=== PATIENT | male | born 1955 | race Caucasian/White ===

== ENCOUNTER 2021-06-02 17:36 | Inpatient (IN) | payer BC, MEDICARE ==
[~2021-06-02] VITALS: Ht 182.9 cm; Wt 99.0 kg
[2021-06-02 22:26] LABS: BASO # 0.1 (0.0-0.2); BASO % 0.5 % (0.0-2.0); EOS # 0.1 (0.0-0.7); GRAN # 6.6 (1.4-6.5); GRAN % 68.7 % (42.2-75.2); HEMATOCRIT 41.8 % (42.0-52.0); LYMPH # 1.9 (1.2-3.4); LYMPH % 20.2 % (20.0-51.0); MEAN CELL VOLUME 89 fl (80.0-100.0); MEAN CORPUSCULAR HEMOGLOBIN 30 pg (27.0-31.0); MEAN CORPUSCULAR HGB CONC 34 g/dl (33.0-37.0); MEAN PLATELET VOLUME 10.1 fl (7.4-10.4); MONO # 0.9 (0.1-0.6); MONO % 9.2 % (1.7-9.3); PLATELET COUNT 210 K/mm3 (130-400); RED BLOOD COUNT 4.72 M/mm3 (4.20-5.60); REDCELL DISTRIBUTION WIDTH-CV 13.1 % (11.5-14.5)
[2021-06-02 22:40] LABS: ALBUMIN 4.4 gm/dL (3.5-5.0); BILIRUBIN,TOTAL 0.6 mg/dL (0.0-1.0); C-REACTIVE PROTEIN 4.1 mg/dL (0.0-0.9); CALCIUM 9.7 mg/dL (8.4-10.2); CREATININE, serum 1.1 (0.66-1.25); POTASSIUM 4.2 mmol/L (3.4-5.0); TOTAL PROTEIN 7.4 gm/dL (6.4-8.2)
[2021-06-03] VITALS (7 sets, daily range): BP systolic 131–152; BP diastolic 65–77; PULSE 74–86; TEMP 98–99.3
[2021-06-03] MEDS ORDERED: TRESIBA FL100 UNIT/1 SQ (00:43)
[2021-06-03] MEDS ORDERED: TRULICITY3 MG/0.5 M SQ (00:44)
[2021-06-03] MEDS ORDERED: CEPHALEXIN500 M1 PO (00:44)
[2021-06-03] MEDS ORDERED: AMARYL4 MG PO (00:45)
[2021-06-03] MEDS ORDERED: GLUCOPHAGE1000 MG PO (00:46)
[2021-06-03] MEDS ORDERED: VOLTAREN 50MG T50 MG PO (00:48)
--- NOTE | 2021-06-03 02:50 | NUR ---
PT ARRIVED TO ROOM 347 VIA W/C. IS ALERT AND ORIENTED X4. HAS IV VANCO INFUSING TO LEFT HAND SITE, NO REDNESS OR SWELLING NOTED. RATES PAIN TO RT HAND 5/10. HAS REDDENED RT HAND, 4TH AND 5TH DIGITS WITH MINIMAL SWELLING, REPORTS PAIN UP TO WRIST AREA. OFFERED PILLOW TO ELEVATE, DECLINED. REPORTS B/P TAKEN ON THAT ARM DOESN'T BOTHER HIS HAND.
--- NOTE | 2021-06-03 03:11 | NUR ---
MEDICATED WITH DILAUDID 0.25MG IVP AT THIS TIME. ADMISSION QUESTIONS COMPLETED.
--- NOTE | 2021-06-03 05:19 | NUR ---
MEDICATED WITH DILAUDID 0.25MG IVP FOR PAIN 6/10 TO RT HAND.
--- NOTE | 2021-06-03 07:12 | NUR ---
Dr. Haney in to see patient.
[2021-06-03 07:16] LABS: BASO % 0.4 % (0.0-2.0); EOS % 0.5 % (0-4.0); GRAN # 5.7 (1.4-6.5); GRAN % 71.6 % (42.2-75.2); HEMATOCRIT 38.6 % (42.0-52.0); HEMOGLOBIN 12.6 g/dl (13.5-18.0); LYMPH # 1.3 (1.2-3.4); LYMPH % 16.8 % (20.0-51.0); MEAN CELL VOLUME 91 fl (80.0-100.0); MEAN CORPUSCULAR HEMOGLOBIN 30 pg (27.0-31.0); MEAN CORPUSCULAR HGB CONC 33 g/dl (33.0-37.0); MONO # 0.8 (0.1-0.6); MONO % 10.3 % (1.7-9.3); PLATELET COUNT 171 K/mm3 (130-400); RED BLOOD COUNT 4.25 M/mm3 (4.20-5.60); REDCELL DISTRIBUTION WIDTH-CV 13.2 % (11.5-14.5)
[2021-06-03 07:25] LABS: CALCIUM 8.6 mg/dL (8.4-10.2); CREATININE, serum 1.23 (0.66-1.25); POTASSIUM 4.2 mmol/L (3.4-5.0)
--- NOTE | 2021-06-03 08:00 | NUR ---
Patient in bed resting. Alert and oriented x 3. Spouse at bedside. States pain to right hand. medications given per orders. Right hand is warm to touch, edema noted. Patient unable to close hand d/t swelling. States it has been getting progressively worse since previous days. Denies further needs at this time.
--- NOTE | 2021-06-03 10:14 | NUR ---
Patient up ambulating in halls independently, steady gait.
--- NOTE | 2021-06-03 11:43 | NUR ---
Patient states pain to right hand 6/10, medications given per orders.
--- NOTE | 2021-06-03 11:58 | NUR ---
Notified Hospitalist, patient spouse concerned about MRI being without contrast as her son (who is a radiologist) is recomending MRI with contrast.
--- NOTE | 2021-06-03 13:23 | NUR ---
Initial visit; Patient thanked [employer] for looking in on him and offering God's blessings.
--- NOTE | 2021-06-03 14:01 | NUR ---
Patient originally seen in the hallway ambulating with his , Ashtyn #[phone]. She was able to confirm insurance and provided the patient's MCR card. Interview then took place in patient's room after he finished his walk. Patient is from home; he lives with his in [place]. Patient states he does not have a DPOA or living will and has no interest in completing one here today. Barry have a son, Arturo Omlos, who is a radiologist at [employer], that they would like involved in care, #[phone]. The patient denies the use of assistive devices or home medical equipment and doesn't forsee the need for any at this time. PCP is Dr. Wilkerson in [facility] and preferred pharmacy is [facility]. DISCHARGE PLAN: HOME WITH SUPPORT
--- NOTE | 2021-06-03 17:13 | NUR ---
Patient back from MRI
--- NOTE | 2021-06-03 18:15 | NUR ---
Patient doing well throughout the day. Spouse at bedside. Patient showered independently this afternoon. Pain medication given throughout the day for hand pain. Antibiotics and fluids infusing per orders. Denies further needs at this time. Will report off to topstitcher lockstitch.
--- NOTE | 2021-06-03 20:27 | NUR ---
PT ASKING FOR PAIN MEDS FOR RT HAND PAIN. REPORTS MORE PAIN AFTER POSITIONING IN MRI. RT HAND RED AND HOT TO TOUCH, ALL FINGERS MILDLY SWOLLEN. IVF TO LEFT HAND INFUSING WITHOUT PROBLEM. INDEPENDENT IN ROOM.
--- NOTE | 2021-06-03 21:45 | NUR ---
PT WITH CONTINUED PAIN TO RT HAND. DILAUDID 0.25MG IVP GIVEN WELL ICE PACK PER PT REQUEST.
[2021-06-04] VITALS (7 sets, daily range): BP systolic 121–149; BP diastolic 52–68; PULSE 65–81; TEMP 97.6–100.2
--- NOTE | 2021-06-04 00:17 | NUR ---
PT AWAKE. HAS TRIED NUMEROUS POSITIONS FOR RT HAND COMFORT. MEDICATED WITH NORCO AND DILAUDID AT THIS TIME. WEARING SLING TO RT ARM OFF AND ON.
--- NOTE | 2021-06-04 04:27 | NUR ---
ASKING FOR IV PAIN MEDS FOR RT HAND PAIN. DILAUDID 0.25MG IVP GIVEN.
--- NOTE | 2021-06-04 08:30 | NUR ---
Patient in bed resting. Alert and oriented x 3. Assessment complete. Additional dose of pain medication given for continued pain to right hand. Hand appears to have increased swelling to right hand. Antibiotics and fluids infusing per orders. Denies furhter needs at this time.
--- NOTE | 2021-06-04 10:19 | NUR ---
Patient up ambulating in shah with spouse, steady gait.
--- NOTE | 2021-06-04 11:37 | NUR ---
Patient sitting up on edge of bed. Denies pain or needs at this time.
--- NOTE | 2021-06-04 13:26 | NUR ---
FB=[id number], insulin given per orders. Patient denies pain at this time. States Dr. Haney was by to see him again this afternoon. Denies pain at this time. Denies further needs at this time.
--- NOTE | 2021-06-04 16:23 | NUR ---
Patient ambulating in halls.
--- NOTE | 2021-06-04 18:13 | NUR ---
Patient doing well throughout the day. Up ambulating in halls with steady gait. Denies pain at this time. Antibiotics infusing per orders. Denies further needs at this time. Will report off to awake overnight monitor.
--- NOTE | 2021-06-04 20:00 | NUR ---
Report received, assumed care for retail shift manager. Assessment complete. A&Ox3. Denies pain/nausea/shortness of breath. VS remain stable. INT to left hand flushes without difficulty. Noted to have swelling to right hand-currently wrapped in kang bandage. Encouraged to keep elevated to help with swelling. Plan of care discussed for this shift to include HS meds/pain control/calling for questions/concerns. Verbalizes understanding/denies needs. Call light in reach. Will monitor.
--- NOTE | 2021-06-04 21:00 | NUR ---
Called with c/o pain to right hand-rating pain 4/10 on pain scale-toradol given per dr order. Will monitor.
[2021-06-05] VITALS: BP 119/56; PULSE 56; TEMP 98.4
--- NOTE | 2021-06-05 | NUR ---
Called with c/o pain to right hand. Rating pain 4/10 on pain scale-percocet one tab given per dr order. Will monitor.
--- NOTE | 2021-06-05 01:00 | NUR ---
Called with c/o pain to right hand. Rating pain 7/10 on pain scale. Received one percocet at 0000. Per order second percocet given. Will monitor.
--- NOTE | 2021-06-05 02:10 | NUR ---
Resting eyes closed. No s/s of pain noted.
[2021-06-05 03:48] VITALS: BP 120/60; PULSE 77; TEMP 97.8
[2021-06-05 06:47] LABS: HEMOGLOBIN 11.7 g/dl (13.5-18.0); MEAN CELL VOLUME 90 fl (80.0-100.0); MEAN CORPUSCULAR HEMOGLOBIN 30 pg (27.0-31.0); MEAN CORPUSCULAR HGB CONC 33 g/dl (33.0-37.0); MEAN PLATELET VOLUME 11.1 fl (7.4-10.4); PLATELET COUNT 165 K/mm3 (130-400)
[2021-06-05 06:51] LABS: CALCIUM 8.3 mg/dL (8.4-10.2); CREATININE, serum 1.18 (0.66-1.25); POTASSIUM 4.5 mmol/L (3.4-5.0)
[2021-06-05 07:02] LABS: HEMATOCRIT 35.2 % (42.0-52.0)
[2021-06-05 08:00] VITALS: BP 125/66; PULSE 68; TEMP 98
[2021-06-05] MEDS ORDERED: DOXYCYCLINE HY100 MG PO (10:18)
[2021-06-05] MEDS ORDERED: PROTONIX20 MG PO (10:19)
--- NOTE | 2021-06-05 11:00 | NUR ---
Patient has been doing well this morning. He will be going home later, after his zosyn is done. His is at bedside. Dr Haney has seen patient this morning. No changes at this time. Patient has been up walking in the hallways. Encouraged patient to keep his right hand elevated above his heart. No other changes at this time. Call light within reach.
[2021-06-05 11:39] VITALS: BP 130/68; PULSE 63; TEMP 98.1
--- NOTE | 2021-06-05 13:20 | NUR ---
Patient is discharging home. Discharge instructions discussed with patient. No questions verbalized. INT discontinued. Explained he had a prescription sent to the pharmacy to [facility]. All belongings packed up and sent with patient. Copies of discharge instructions sent with patient. Patient walked out with this nurse.
== END 2021-06-05 13:20 | disposition home or self-care (01) | DRG 603 ==
LOC: COL.ER 17:36 → SURG 06-03 01:17
PROVIDERS: Nurse Practitioner; Nurse Practitioner Family; Physician Assistant; ADMIT Internal Medicine
DX: L03.113 Cellulitis of right upper limb (principal); E11.9 Type 2 diabetes mellitus without complications; Z79.84 Long term (current) use of oral hypoglycemic drugs; G56.00 Carpal tunnel syndrome, unspecified upper limb
CPT/HCPCS: 99222-AI; 99232-AI; 99239; A9585; J1170; J1650; J1815; J1885; J2270; J2543; J3370; J7030; J7040; J7050